=== PATIENT | male | born 1985 | race Caucasian/White ===

== ENCOUNTER 2019-09-20 18:48 | Emergency (ER) | payer OTHER ==
[2019-09-20] MEDS ORDERED: Lidocaine 1% with EPINEPHrine 1:100,000 20 ML MDV ONE (19:25)
[2019-09-20] MEDS ORDERED: Lidocaine 1% with EPINEPHrine 1:100,000 20 ML MDV INJECT ONE (19:36)
--- NOTE | 2019-09-20 19:42 | EDM.PDOC ---
ED HPI GENERAL MEDICAL PROBLEM - General Chief Complaint: ENT Problem Stated Complaint: TOOTH PAIN Time Seen by Provider: 09/20/19 19:16 Source of Information: Reports: Patient History Limitations: Reports: No Limitations - History of Present Illness INITIAL COMMENTS - FREE TEXT/NARRATIVE: 34-year-old gentleman presents to the emergency room chief complaint of lower molar pain and swelling. Patient states he has pain and severe swelling in the area. Patient denies trauma. Patient states is been going on for 2 days Duration: Day(s):, Getting Worse Location: Reports: Other (Infected teeth) Quality: Reports: Ache Severity: Mild Improves with: Reports: None Worsens with: Reports: None Associated Symptoms: Reports: No Other Symptoms Right Oral/Mouth Pain Score (Numeric/FACES): 7 - Related Data Allergies Allergy/AdvReac Type Severity Reaction Status Date / Time No Known Allergies Allergy Verified 09/20/19 19:03 Home Meds: Home Meds Buprenorphine [Subutex] 8 mg PO DAILY 09/20/19 [History] Past Medical History - Past Health History Medical/Surgical History: Denies Medical/Surgical History - Infectious Disease History Infectious Disease History: Reports: Chicken Pox Social & Family History - Family History Family Medical History: Noncontributory - Tobacco Use Smoking Status *Q: Current Every Day Smoker Years of Tobacco use: 3 Packs/Tins Daily: 0.5 - Caffeine Use Caffeine Use: Reports: Energy Drinks - Recreational Drug Use Recreational Drug Use: No ED ROS ENT - Review of Systems Review Of Systems: Comprehensive ROS is negative, except as noted in HPI. Constitutional: Reports: No Symptoms HEENT: Reports: Dental Pain Respiratory: Reports: No Symptoms Cardiovascular: Reports: No Symptoms Endocrine: Reports: No Symptoms GI/Abdominal: Reports: No Symptoms : Reports: No Symptoms Musculoskeletal: Reports: No Symptoms Skin: Reports: No Symptoms Neurological: Reports: No Symptoms Psychiatric: Reports: No Symptoms Hematologic/Lymphatic: Reports: No Symptoms Immunologic: Reports: No Symptoms ED EXAM, ENT - Physical Exam Exam: See Below Exam Limited By: No Limitations General Appearance: Alert, WD/WN, No Apparent Distress Eye Exam: Bilateral Eye: PERRL Ears: Normal External Exam, Normal Canal, Hearing Grossly Normal, Normal TMs Nose: Normal Inspection, Normal Mucousa Mouth/Throat: Normal Inspection, Normal Gums Head: Atraumatic, Normocephalic Neck: Normal Inspection, Supple Respiratory/Chest: No Respiratory Distress, Lungs Clear, Normal Breath Sounds, No Accessory Muscle Use Cardiovascular: Normal Peripheral Pulses GI/Abdominal: Normal Bowel Sounds (Male) Exam: Deferred Rectal (Males) Exam: Deferred Back: Normal Inspection, Full Range of Motion Extremities: Normal Inspection, Normal Range of Motion Psychiatric: Normal Affect Skin: Warm ED ENT PROCEDURES - Additional/Other Procedure(s) Other (Free Text) Procedure(s): Performed a dental block under the second molar on the right side. Using 4 cc of lidocaine with epi 1%. Patient tolerated the procedure well. Pain relief 27-gauge needle Course - Vital Signs Last Recorded V/S: Last Vital Signs Temp 99.2 F 09/20/19 19:04 Pulse 75 09/20/19 19:04 Resp 18 09/20/19 19:04 BP 189/110 H 09/20/19 19:04 Pulse Ox 97 09/20/19 19:04 - Orders/Labs/Meds Orders: Active Orders 24 hr Category Date Time Status Lidocaine 1% w/EPINEPHrine [Xylocaine 1% with Med 09/20/19 19:36 Once EPINEPHrine 1:100,000] 20 ml INJECT ONETIME ONE Medication Orders Lidocaine/Epinephrine (Xylocaine 1% With Epinephrine 1:100,000) 20 ml INJECT ONETIME ONE Stop: 09/20/19 19:37 Meds: Medications Generic Name Dose Route Start Last Admin Trade Name Freq PRN Reason Stop Dose Admin Lidocaine/Epinephrine 20 ml 09/20/19 19:36 Xylocaine 1% With Epinephrine 1:100,000 INJECT 09/20/19 19:37 ONETIME ONE Discontinued Medications Generic Name Dose Route Start Last Admin Trade Name Freq PRN Reason Stop Dose Admin Lidocaine/Epinephrine Confirm 09/20/19 19:25 Xylocaine 1% With Epinephrine 1:100,000 Administered 09/20/19 19:26 Dose 20 ml .ROUTE .STK-MED ONE Departure - Departure Time of Disposition: 19:41 Disposition: Home, Self-Care 01 Condition: Good Clinical Impression: Dental infection - Discharge Information Referrals: PCP,None [Primary Care Provider] - Sepsis Event Note - Evaluation Sepsis Screening Result: No Definite Risk - Focused Exam Vital Signs: Vital Signs Temp Pulse Resp BP Pulse Ox 09/20/19 19:04 99.2 F 75 18 189/110 H 97 Date Exam was Performed: 09/20/19 Time Exam was Performed: 19:37 - My Orders Last 24 Hours: My Active Orders 09/20/19 19:36 Lidocaine 1% w/EPINEPHrine [Xylocaine 1% with EPINEPHrine 1:100,000] 20 ml INJECT ONETIME ONE - Assessment/Plan Last 24 Hours: My Active Orders 09/20/19 19:36 Lidocaine 1% w/EPINEPHrine [Xylocaine 1% with EPINEPHrine 1:100,000] 20 ml INJECT ONETIME ONE
[2019-09-20] MEDS ORDERED: Cephalexin 500 MG Cap PO ONE (19:43)
[2019-09-20] MEDS ORDERED: Naproxen 500 MG Tab PO ONE (19:44)
== END 2019-09-20 20:07 | disposition home or self-care (01) ==
LOC: MW.ED 18:48
DX: K04.7 Periapical abscess without sinus (principal); F17.210 Nicotine dependence, cigarettes, uncomplicated
CPT/HCPCS: 64400; 99282; A9270

== ENCOUNTER 2024-06-16 21:36 | Emergency (ER) | payer SELFPAY ==
[2024-06-16] MEDS: Lidocaine 1% 5 ML VIAL INJECT ONE (21:58)
[2024-06-16] MEDS: Bacitracin Oint 1 GM U/D Packet TOP ONE (23:17)
== END 2024-06-16 23:39 | disposition home or self-care (01) ==
LOC: MW.ED 21:36
DX: S61.411A Laceration without foreign body of right hand, initial encounter (principal); Z79.899 Other long term (current) drug therapy; W26.8XXA Contact with other sharp object(s), not elsewhere classified, initial encounter
CPT/HCPCS: 12004; 99282; 99283; J3490

== ENCOUNTER 2024-06-27 16:04 | Emergency (ER) | payer OTHER | END 2024-06-27 21:06 | disposition home or self-care (01) | LOC: MW.ED 16:04 | DX: R23.8 Other skin changes (principal); F17.210 Nicotine dependence, cigarettes, uncomplicated; Z79.899 Other long term (current) drug therapy; Z75.8 Other problems related to medical facilities and other health care | CPT/HCPCS: 99282 ==